=== PATIENT | male | born 1955 | race Caucasian/White ===

== ENCOUNTER 2021-01-31 16:39 | Inpatient (IN) | payer MEDICARE, MEDICAID ==
[~2021-01-31] VITALS: Ht 172.7 cm; Wt 62.6 kg
[2021-01-31 20:00] VITALS: BP 144/65
[2021-01-31 20:19] VITALS: BP 144/65
[2021-01-31] MEDS ORDERED: ARICEPT5 M1 PO (21:10)
[2021-01-31] MEDS ORDERED: BAYER ASPIRIN C81 MG PO (21:14)
[2021-01-31] MEDS ORDERED: BREO ELLIPTA 11 EACH INH (21:15)
[2021-01-31] MEDS ORDERED: BUSPIRONE HCL15 MG PO (21:17)
[2021-01-31] MEDS ORDERED: CARVEDILOL6.25 MG PO (21:28)
[2021-01-31] MEDS ORDERED: VITAMIN D325 MCG PO (21:30)
[2021-01-31] MEDS ORDERED: Clopidogrel75 MG PO (21:31)
[2021-01-31] MEDS ORDERED: COLACE100 MG PO (21:32)
[2021-01-31] MEDS ORDERED: NATURE'S BLEND F1 MG PO (21:34)
[2021-01-31] MEDS ORDERED: LEVOTHYROXINE100 MC2 PO (21:36)
[2021-01-31] MEDS ORDERED: PANTOPRAZOLE SO40 MG PO (21:36)
[2021-01-31] MEDS ORDERED: VITAMIN B121000 MC1 PO (21:37)
[2021-01-31] MEDS ORDERED: TYLENOL325 M1 PO (21:39)
[2021-01-31] MEDS ORDERED: GOOD NEIGHBOR M25 M1 PO (21:39)
[2021-01-31] MEDS ORDERED: ZOFRAN4 MG PO (21:41)
[2021-02-01 06:18] LABS: HEMATOCRIT 32.5 % (42.0-52.0); MEAN CORPUSCULAR HGB 27.2 pg (27.0-31.0); MEAN CORPUSCULAR HGB CONC 31.7 g/dl (33.0-37.0); MEAN PLATELET VOLUME 10.2 fl (9.6-12.3); PLATELET COUNT AUTOMATED 350 10*3/uL (130-400); RED BLOOD COUNT 3.78 10*6/uL (4.50-5.90); RED CELL DISTRI WIDTH 16.2 % (0-14.5); WHITE BLOOD COUNT 8.4 10*3/uL (4.8-10.8)
[2021-02-01 06:41] LABS: ALBUMIN 2.5 gm/dl (3.1-4.5); BUN 7 mg/dl (7-24); CHLORIDE 106 mmol/L (98-107); CHOLESTEROL 176 mg/dL (<200); CREATININE 1.02 mg/dL (0.70-1.30); POTASSIUM 3.7 mmol/L (3.5-5.1); SGOT/AST 42 IU/L (3-35); SGPT/ALT 25 U/L (12-78); SODIUM 137 mmol/L (136-145); TOTAL PROTEIN 6.7 gm/dL (6.4-8.2); TRIGLYCERIDES 105 mg/dl (<150)
[2021-02-01 06:50] LABS: ALKALINE PHOSPHATASE 107 U/L (45-117); LDL CHOLESTEROL 112 mg/dL (9-159); THYROID STIM HORMONE (HS) 0.302 uIU/ml (0.358-4.75)
[2021-02-01 07:03] LABS: VITAMIN D, 25-HYDROXY 26.8 ng/mL (30-100)
[2021-02-01 07:23] LABS: ATYPICAL LYMPHS 2 % (0-0); BASOPHILS 1 % (0-1); POLYCHROMASIA SLIGHT; TOTAL CELLS COUNTED 100 #CELLS
[2021-02-01 07:24] LABS: PLATELET SUFFICIENCY NORMAL (NORMAL)
[2021-02-01 08:46] VITALS: BP 158/89
[2021-02-01 20:00] VITALS: BP 128/76
[2021-02-02 07:48] VITALS: BP 127/63
[2021-02-02 20:00] VITALS: BP 149/68
[2021-02-03 07:59] VITALS: BP 138/64
[2021-02-03 14:29] LABS: BILIRUBIN Negative (Negative); BLOOD Negative (Negative); CLARITY Clear (Clear); COLOR Yellow (Yellow); GLUCOSE Negative (Negative); KETONE Negative (Negative); LEUKO ESTERASE Negative (Negative); NITRITE Negative (Negative); SPECIFIC GRAVITY 1.015 (1.001-1.030)
[2021-02-03 14:50] LABS: BACTERIA 4+; EPITHELIAL CELLS 0-2; RBC 0-2 rbc/hpf (0-2); WBC 0-2 wbc/hpf (0-5)
[2021-02-03 20:00] VITALS: BP 136/58
[2021-02-04 07:37] VITALS: BP 113/85
[2021-02-04 20:00] VITALS: BP 103/41
[2021-02-05 07:31] VITALS: BP 118/58
[2021-02-05 20:00] VITALS: BP 156/72
[2021-02-06 08:04] VITALS: BP 123/62
[2021-02-06 19:29] VITALS: BP 135/70
[2021-02-07 08:00] VITALS: BP 153/69
[2021-02-07] MEDS ORDERED: MEMANTINE HCL10 MG PO (09:14)
[2021-02-07] MEDS ORDERED: NAMENDA-5 PO (09:14)
[2021-02-07] MEDS ORDERED: ROZEREM8 MG PO (09:14)
[2021-02-07] MEDS ORDERED: RIVASTIGMINE1 EAC2 T (09:14)
[2021-02-07] MEDS ORDERED: MIRTAZAPINE15 M2 PO (09:14)
[2021-02-07] MEDS ORDERED: ATARAX,VISTARIL50 MG PO (09:14)
== END 2021-02-07 10:03 | DRG 885 ==
LOC: 3N 16:39
PROVIDERS: ADMIT Psychiatry & Neurology Psychiatry; ATTEND Psychiatry & Neurology Psychiatry
DX: F33.2 Major depressive disorder, recurrent severe without psychotic features (principal); E43 Unspecified severe protein-calorie malnutrition; F63.9 Impulse disorder, unspecified; F10.10 Alcohol abuse, uncomplicated; Z20.822 Contact with and (suspected) exposure to COVID-19; D64.9 Anemia, unspecified; I51.9 Heart disease, unspecified; F41.9 Anxiety disorder, unspecified; F43.20 Adjustment disorder, unspecified; F03.90 Unspecified dementia, unspecified severity, without behavioral disturbance, psychotic disturbance, mood disturbance, and anxiety; F17.200 Nicotine dependence, unspecified, uncomplicated; G47.00 Insomnia, unspecified; Z82.0 Family history of epilepsy and other diseases of the nervous system; Z88.8 Allergy status to other drugs, medicaments and biological substances; Z88.1 Allergy status to other antibiotic agents; Z68.20 Body mass index [BMI] 20.0-20.9, adult; I10 Essential (primary) hypertension